=== PATIENT | female | born 1975 | race Caucasian/White ===

== ENCOUNTER 2017-03-17 17:51 | Emergency (ER) | payer SELFPAY ==
[2017-03-17 18:18] VITALS: TEMP 98.9
[2017-03-17] MEDS ORDERED: Albuterol-Ipratrop 3 mg / 0.5 (3 ml) UD INH STA (18:46)
[2017-03-17] MEDS ORDERED: Albuterol-Ipratrop 3 mg / 0.5 (3 ml) UD ONE (19:09)
--- NOTE | 2017-03-17 19:11 | C.PDOC ---
History Of Present Illness 41 y/o female presents to ED with complaints of cough for 3 days. Patient states she was using inhaler at home with no relief and ran out of her nebulizer medication. notes she has not had asthma exacerbation in "many months " and notes it feels the same way, no new symptoms. Patient denies fever, chest pain, n/v/d or any other complaints at this time. Time Seen by Provider: 03/17/17 18:34 Chief Complaint (Nursing): Cough, Cold, Congestion History Per: Patient History/Exam Limitations: no limitations Onset/Duration Of Symptoms: Days Current Symptoms Are (Timing): Still Present Past Medical History Reviewed: Historical Data, Nursing Documentation, Vital Signs Vital Signs: Last Vital Signs Temp 98.9 F 03/17/17 18:15 Pulse 78 03/17/17 20:22 Resp 16 03/17/17 20:22 BP 125/84 03/17/17 20:22 Pulse Ox 100 03/17/17 20:31 - Medical History PMH: Asthma Family History: States: Unknown Family Hx - Social History Hx Tobacco Use: No Hx Alcohol Use: No Hx Substance Use: No - Immunization History Hx Tetanus Toxoid Vaccination: No Hx Influenza Vaccination: No Hx Pneumococcal Vaccination: No Review Of Systems Except As Marked, All Systems Reviewed And Found Negative. Constitutional: Negative for: Fever, Chills Cardiovascular: Negative for: Chest Pain Respiratory: Positive for: Cough Gastrointestinal: Negative for: Nausea, Vomiting, Diarrhea Skin: Negative for: Rash Physical Exam - Physical Exam Appears: Well, Non-toxic, No Acute Distress Skin: Normal Color, Warm Head: Atraumatic, Normacephalic Eye(s): bilateral: Normal Inspection, EOMI Ear(s): Bilateral: Normal Nose: Normal Oral Mucosa: Moist Throat: Normal, No Erythema Neck: Normal, Normal ROM, Supple Chest: Symmetrical Cardiovascular: Rhythm Regular Respiratory: Decreased Breath Sounds, No Rales, No Rhonchi, No Wheezing Extremity: Normal ROM, Capillary Refill (<2 seconds) Neurological/Psych: Oriented x3, Normal Motor, Normal Sensation ED Course And Treatment O2 Sat by Pulse Oximetry: 100 (RA) Pulse Ox Interpretation: Normal Progress Note: Duo neb and prednisone ordered. On reassessment, patient is resting comfortably with no wheezing, chest pain, or retractions. Pt was offered additional neb, pt refused. Pt notes she wells normal. Oxygen saturation and breath sounds have improved. Patient is alert and oriented x 3. Patient was advised to follow up with physician/clinic in 1-2 days and return to ED if symptoms worsen or persist. Reevaluation Time: 19:45 (On reassessment, patient is resting comfortably with no wheezing, chest pain, or retractions. Oxygen saturation and breath sounds have improved. Patient is alert and oriented x 3. Patient was advised to follow up with physician/clinic in 1-2 days and return to ED if symptoms worsen or persist. ) Reassessment Condition: Improved Disposition - Disposition Disposition: HOME/ ROUTINE Disposition Time: 19:57 Condition: STABLE Additional Instructions: Vaya a capellan mdico o la clnica en 1-3 no sin falta, para mas evaluacin. [place] and[place] medicamentos ligia indicado. Volver a la josh de emergencia en cualquier momento si los sntomas persisten o empeoran. Prescriptions: Albuterol 0.083% [Albuterol 0.083% Inhal Michela (2.5 mg/3 ml) UD] 2.5 mg IH Q6 PRN #20 neb PRN Reason: Shortness Of Breath predniSONE [Prednisone] 40 mg PO DAILY #8 tab Instructions: Asthma (ED) Print Language: TAJIK - Clinical Impression Clinical Impression: Asthma exacerbation - Scribe Statement The provider has reviewed the documentation as recorded by the Scribpepe Trimble All medical record entries made by the Scribe were at my direction and personally dictated by me. I have reviewed the chart and agree that the record accurately reflects my personal performance of the history, physical exam, medical decision making, and the department course for this patient. I have also personally directed, reviewed, and agree with the discharge instructions and disposition.
[2017-03-17 20:26] VITALS: BP 125/84; PULSE 78; RESP 16
[2017-03-17 20:32] VITALS: O2SAT 100
== END 2017-03-17 20:22 | disposition home or self-care (01) ==
LOC: C.ER 17:51
DX: J45.901 Unspecified asthma with (acute) exacerbation (principal)

== ENCOUNTER 2017-06-16 11:19 | Emergency (ER) | payer OTHER ==
[2017-06-16 11:45] VITALS: BMI 25.7
[2017-06-16 11:49] VITALS: O2SAT 95
[2017-06-16] MEDS ORDERED: Dexamethasone 4 mg/1 ml IM STA (12:43)
[2017-06-16] MEDS ORDERED: Dexamethasone 4 mg/1 ml ONE (13:00)
--- NOTE | 2017-06-16 13:00 | C.PDOC ---
History Of Present Illness 42 year old female presents to the ED for evaluation of right-sided lower back pain which began yesterday. Patient states her pain is non-radiating and worse with movement of her back. Patient has been taking [id number]-nzomcew pain medicine without significant relief. Patient denies fever, chills, abdominal pain, urinary/bowel incontinence, extremity numbness/weakness, and recent trauma /falls. Time Seen by Provider: 06/16/17 11:50 Chief Complaint (Nursing): Back Pain History Per: Patient History/Exam Limitations: no limitations Onset/Duration Of Symptoms: Other (2 weeks ) Current Symptoms Are (Timing): Still Present Quality Of Discomfort: "Pain" Previous Symptoms: Back Pain Associated Symptoms: denies: Incontinence, New Weakness, New Numbness Exacerbating Factor(s): Movement Additional History Per: Patient Past Medical History Reviewed: Historical Data, Nursing Documentation, Vital Signs Vital Signs: Last Vital Signs Temp 98.1 F 06/16/17 11:45 Pulse 63 06/16/17 11:45 Resp 18 06/16/17 11:45 BP 118/76 06/16/17 11:45 Pulse Ox 95 06/16/17 14:28 - Medical History PMH: Asthma Surgical History: No Surg Hx Family History: States: Unknown Family Hx - Social History Hx Tobacco Use: No Hx Alcohol Use: No Hx Substance Use: No - Immunization History Hx Tetanus Toxoid Vaccination: No Hx Influenza Vaccination: No Hx Pneumococcal Vaccination: No Review Of Systems Constitutional: Negative for: Fever, Chills Gastrointestinal: Negative for: Abdominal Pain Genitourinary: Negative for: Incontinence Musculoskeletal: Positive for: Back Pain (right-sided, lower ) Neurological: Negative for: Weakness, Numbness Physical Exam - Physical Exam Appears: Non-toxic, No Acute Distress Skin: Normal Color, Warm, Dry Head: Atraumatic, Normacephalic Eye(s): bilateral: Normal Inspection Oral Mucosa: Moist Neck: Supple Chest: Symmetrical, No Deformity, No Tenderness Cardiovascular: Rhythm Regular, No Murmur Respiratory: Normal Breath Sounds, No Rales, No Rhonchi, No Wheezing Gastrointestinal/Abdominal: Soft, No Tenderness, No Guarding, No Rebound Back: Paraspinal Tenderness (right-sided, lower ) Extremity: Normal ROM, Capillary Refill (less than 2 seconds ) Neurological/Psych: Oriented x3, Normal Speech, Normal Cognition Gait: Steady ED Course And Treatment - Laboratory Results Urine POC: Negative O2 Sat by Pulse Oximetry: 95 (on RA) Pulse Ox Interpretation: Normal - Other Rad lumbar spine XR X-Ray: Interpreted by Me, Viewed By Me, Read By Radiologist Interpretation: Lumbar spine three views. History: Back pain. Comparison: None available. Findings: Minimal retrolisthesis of L2 on L3, L3 on L4, and L4 on L5. Mild inferior endplate concavities at the L4 and L5 vertebral bodies. Facet sclerosis and hypertrophy at the L4-5 and L5-S1 levels. Disc space narrowing with endplate sclerosis within the lower thoracic spine. Rounded radiopaque densities project over the right renal fossa, nonspecific. Impression: Minimal retrolisthesis of L2 on L3, L3 on L4, and L4 on L5. Mild inferior endplate concavities at the L4 and L5 vertebral bodies. Facet sclerosis and hypertrophy at the L4-5 and L5-S1 levels. Disc space narrowing with endplate sclerosis within the lower thoracic spine. Correlation with spinal MRI may be helpful if clinically indicated. Rounded radiopaque densities project over the right renal fossa, nonspecific. Correlation with renal ultrasound may be helpful if clinically indicated. Medical Decision Making Medical Decision Making: Progress: LS Spine AP/LAT and UA ordered and reviewed. Ciproflaxin PO, Decadron IM,and Toradol IM administered. On second re-exam, the patient reports improvement of symptoms. Lungs are CTA, heart is RRR, Ambulatory in the ED with steady gait. Abdomen is soft, non- tender and tolerating PO well. Ambulatory in the ED with gait. Follow up with the medical doctor within 1-2 days. Return if worsened. Disposition - Disposition Referrals: [facility] [Outside] Disposition: HOME/ ROUTINE Disposition Time: 14:49 Condition: GOOD Additional Instructions: Follow up with the medical doctor within 1-2 days. Return if worsened. Prescriptions: Ciprofloxacin [Cipro] 1 tab PO BID #14 tab Cyclobenzaprine [Cyclobenzaprine HCl] 10 mg PO BID #14 tab Naproxen [Naprosyn] 500 mg PO BID #20 tab Instructions: Acute Low Back Pain (DC), Urinary Tract Infection in Women (ED) Forms: [employer] (Albanian) Print Language: SERBIAN - Clinical Impression Clinical Impression: Low back pain, UTI (urinary tract infection) - PA / ELECTRICAL PROSPECTING OBSERVER / Resident Statement MD/DO has reviewed & agrees with the documentation as recorded. - Scribe Statement The provider has reviewed the documentation as recorded by the Scribe (Ximena Ramirez) All medical record entries made by the Scribe were at my direction and personally dictated by me. I have reviewed the chart and agree that the record accurately reflects my personal performance of the history, physical exam, medical decision making, and the department course for this patient. I have also personally directed, reviewed, and agree with the discharge instructions and disposition.
--- NOTE | 2017-06-16 13:44 | RAD ---
Lumbar spine three views History: Back pain. Comparison: None available. Findings: Minimal retrolisthesis of L2 on L3, L3 on L4, and L4 on L5. Mild inferior endplate concavities at the L4 and L5 vertebral bodies. Facet sclerosis and hypertrophy at the L4-5 and L5-S1 levels. Disc space narrowing with endplate sclerosis within the lower thoracic spine. Rounded radiopaque densities project over the right renal fossa, nonspecific. Impression: Minimal retrolisthesis of L2 on L3, L3 on L4, and L4 on L5. Mild inferior endplate concavities at the L4 and L5 vertebral bodies. Facet sclerosis and hypertrophy at the L4-5 and L5-S1 levels. Disc space narrowing with endplate sclerosis within the lower thoracic spine. Correlation with spinal MRI may be helpful if clinically indicated. Rounded radiopaque densities project over the right renal fossa, nonspecific. Correlation with renal ultrasound may be helpful if clinically indicated.
[2017-06-16 14:00] LABS: RBC URINE 7 /hpf (0-3); URINE BACTERIA RARE (<OCC); URINE BILIRUBIN NEGATIVE (NEGATIVE); URINE BLOOD 1+ (NEGATIVE); URINE COLOR Yellow (YELLOW); URINE GLUCOSE (UA) NORMAL (Normal); URINE KETONE NEGATIVE (NEGATIVE); URINE LEUKOCYTE ESTERASE 3+ Leu/uL (Negative); URINE PROTEIN NEGATIVE (NEGATIVE); URINE UROBILINOGEN NORMAL mg/dL (0.2-1.0); WBC URINE 37 /hpf (0-5)
[2017-06-16 14:59] VITALS: BP 130/82; PULSE 62; RESP 16; TEMP 98
== END 2017-06-16 14:59 | disposition home or self-care (01) ==
LOC: C.ER 11:19
DX: N39.0 Urinary tract infection, site not specified (principal); M54.5 Low back pain
CPT/HCPCS: 72100; 81001; 87086; 96372; 99284; J1100; J1885

== ENCOUNTER 2017-10-10 13:29 | Emergency (ER) | payer OTHER, SELFPAY ==
[2017-10-10 14:05] VITALS: BMI 26.1
[2017-10-10 14:07] VITALS: RESP 20
--- NOTE | 2017-10-10 15:11 | C.PDOC ---
History Of Present Illness 42 year old female with no PMHx presents to the ER with a complaint of bilateral lower leg swelling for the past 2 weeks. Patient states the swelling has been worsening and today she had pain with ambulation which prompted ER visit. Patient notes she scheduled an appointment with her PMD but the earliest appointment she could get was October 28. Denies chest pain, SOB, or fever. Time Seen by Provider: 10/10/17 14:22 Chief Complaint (Nursing): Lower Extremity Problem/Injury History Per: Patient History/Exam Limitations: no limitations Onset/Duration Of Symptoms: Days Current Symptoms Are (Timing): Still Present Recent travel outside of the [place] States: No Past Medical History Reviewed: Historical Data, Nursing Documentation, Vital Signs Vital Signs: Last Vital Signs Temp 98.7 F 10/10/17 14:05 Pulse 70 10/10/17 14:05 Resp 20 10/10/17 14:05 BP 154/78 H 10/10/17 14:05 Pulse Ox 98 10/10/17 17:16 - Medical History PMH: Asthma Family History: States: Unknown Family Hx - Social History Hx Tobacco Use: No Hx Alcohol Use: No Hx Substance Use: No - Immunization History Hx Tetanus Toxoid Vaccination: No Hx Influenza Vaccination: No Hx Pneumococcal Vaccination: No Review Of Systems Constitutional: Negative for: Fever, Chills Cardiovascular: Negative for: Chest Pain Respiratory: Negative for: Shortness of Breath Musculoskeletal: Positive for: Other (Lower leg swelling and pain) Physical Exam - Physical Exam Appears: Non-toxic, No Acute Distress Skin: Normal Color, Warm, Dry Head: Atraumatic, Normacephalic Eye(s): bilateral: Normal Inspection Oral Mucosa: Moist Chest: Symmetrical, No Tenderness Cardiovascular: Rhythm Regular Respiratory: Normal Breath Sounds, No Rales, No Rhonchi, No Wheezing Extremity: Tenderness (Bilateral posterior legs.), Pedal Edema (+1 pitting to bilateral feet, ankles, and distal shins. Negative homans sign.) Neurological/Psych: Oriented x3, Normal Speech, Normal Motor, Normal Sensation Gait: Steady ED Course And Treatment - Laboratory Results Result Diagrams: 10/10/17 15:55 10/10/17 15:55 O2 Sat by Pulse Oximetry: 98 (Room air) Pulse Ox Interpretation: Normal Medical Decision Making Medical Decision Making: Blood work, CXR, urinalysis, and doppler ordered. 3516 pm doppler neg bilateral, bnp neg. cxr neg for congestion, infiltrate. results discussed with patient. pt advised to keep legs elevated whem possible, . avopid prolonged standing. keep clinic appt on Oct 25. Disposition Counseled Patient/Family Regarding: Studies Performed, Diagnosis, Need For Followup - Disposition Disposition: HOME/ ROUTINE Disposition Time: 17:18 Condition: STABLE Additional Instructions: Por favor, mantenga las piernas elevadas cuando sea posible, evite estar parado por mucho tiempo. Sergey un seguimiento con la clnica en capellan octavio en segn lo programado, traiga todos los resultados de la prueba para capellan revisin. Regrese a la josh de urgencias por cualquier sntoma peor, Please keep legs elevated when possible, avoid prolonged standing. Follow up with clinic at your appointment in October as scheduled, bring all test results with you for review. Return to ER for any worse symptoms, Instructions: Dependent Edema (DC) Forms: Gen Discharge Inst Argentine, [facility] (Argentine) - Clinical Impression Clinical Impression: Localized swelling of both lower legs - PA / TAIL BOARD MAN / Resident Statement MD/DO has reviewed & agrees with the documentation as recorded. - Scribe Statement The provider has reviewed the documentation as recorded by the Scribpepe Downey All medical record entries made by the Sallyibpepe were at my direction and personally dictated by me. I have reviewed the chart and agree that the record accurately reflects my personal performance of the history, physical exam, medical decision making, and the department course for this patient. I have also personally directed, reviewed, and agree with the discharge instructions and disposition.
--- NOTE | 2017-10-10 15:49 | RAD ---
HISTORY: bilateral leg swelling COMPARISON: 03/08/2016 TECHNIQUE: Chest PA and lateral FINDINGS: LUNGS: No active pulmonary disease. PLEURA: No significant pleural effusion identified. No pneumothorax apparent. CARDIOVASCULAR: Normal. OSSEOUS STRUCTURES: No significant abnormalities. VISUALIZED UPPER ABDOMEN: Normal. OTHER FINDINGS: None. IMPRESSION: No active disease.
[2017-10-10 16:00] LABS: BASO # 0.1 K/uL (0.0-0.2); BASO % 0.9 % (0.0-2.0); EOS # 0.1 K/uL (0.0-0.7); EOS % 1.7 % (0.0-4.0); HEMOGLOBIN 11.7 g/dL (11.0-16.0); LYMPH # 1.8 K/uL (1.0-4.3); LYMPH % 27.2 % (20.0-40.0); MEAN CORPUSCULAR HEMOGLOBIN 27.9 pg (27.0-31.0); MEAN CORPUSCULAR HGB CONC 33.5 g/dL (33.0-37.0); MEAN PLATELET VOLUME 9.1 fL (7.2-11.7); MONO # 0.5 K/uL (0.0-0.8); MONO % 7.3 % (0.0-10.0); NEUT # 4.1 K/uL (1.8-7.0); NEUT % 62.9 % (50.0-75.0); RBC 4.21 Mil/uL (3.80-5.20); RED CELL DISTRIBUTION WIDTH 16.8 % (11.5-14.5); WHITE BLOOD COUNT 6.6 K/uL (4.8-10.8)
[2017-10-10 16:05] LABS: MEAN CELL VOLUME 83.3 fL (81.0-99.0)
[2017-10-10 16:07] LABS: HCG,QUALITATIVE URINE NEGATIVE (NEGATIVE)
[2017-10-10 16:09] LABS: SQUAMOUS EPITHIAL 1 /hpf (0-5); URINE BILIRUBIN NEGATIVE (NEGATIVE); URINE BLOOD 2+ (NEGATIVE); URINE CLARITY Clear (Clear); URINE COLOR Yellow (YELLOW); URINE GLUCOSE (UA) NORMAL (Normal); URINE LEUKOCYTE ESTERASE 2+ Leu/uL (Negative); URINE NITRATE NEGATIVE (NEGATIVE); URINE PROTEIN NEGATIVE (NEGATIVE); URINE UROBILINOGEN NORMAL mg/dL (0.2-1.0)
[2017-10-10 16:14] LABS: ALB/GLOB RATIO 1.3 (1.0-2.1); ALT/SGPT 26 U/L (9-52); AST/SGOT 18 U/L (14-36); BLOOD UREA NITROGEN 14 mg/dL (7-17); GFR AFRICAN-AMERICAN > 60; GFR NON-AFRICAN AMERICAN > 60
[2017-10-10 16:23] LABS: B-TYPE NATRIURETIC PEPTIDE 43.7 pg/mL (0-450)
[2017-10-10 17:28] VITALS: BP 104/69; PULSE 65; TEMP 99
[2017-10-11 22:15] VITALS: O2SAT 98
--- NOTE | 2017-10-13 13:11 | VASCLAB ---
PROCEDURE: Lower Extremity Venous Duplex Exam. HISTORY: bilateral leg swelling and calf pain PRIORS: None. TECHNIQUE: Bilateral common femoral, femoral, popliteal and posterior tibial, peroneal and great saphenous veins were evaluated. Flow was assessed with color Doppler, compressibility, assessment of phasic flow and augmentation response. Report prepared by JUDIT Tang, RVT FINDINGS: RIGHT: 1. Common Femoral Vein: 1.1. Compressibility - Fully compressible: Thrombus - None : Flow - Phasic: Augmentation -Normal: Reflux - None. 2. Femoral Vein: 2.1. Compressibility - Fully compressible: Thrombus - None : Flow - Phasic: Augmentation -Normal: Reflux - None. 3. Popliteal Vein: 3.1. Compressibility - Fully compressible: Thrombus - None : Flow - Phasic: Augmentation -Normal: Reflux - None. 4. Posterior Tibial Vein: 4.1. Compressibility - Fully compressible: Thrombus - None: Flow - Phasic: Augmentation -Normal: Reflux - None. 5. Peroneal Vein: 5.1. Compressibility - Fully compressible: Thrombus - None: Flow - Phasic: Augmentation -Normal: Reflux - None. 6. Great Saphenous Vein: 6.1. Compressibility - Fully compressible: Thrombus - None: Flow - Phasic: Augmentation - Normal: Reflux - None. LEFT: 1. Common Femoral Vein: 1.1. Compressibility - Fully compressible: Thrombus - None: Flow - Phasic: Augmentation -Normal: Reflux - None. 2. Femoral Vein: 2.1. Compressibility - Fully compressible: Thrombus - None: Flow - Phasic: Augmentation -Normal: Reflux - None. 3. Popliteal Vein: 3.1. Compressibility - Fully compressible: Thrombus - None : Flow - Phasic: Augmentation -Normal: Reflux - None. 4. Posterior Tibial Vein: 4.1. Compressibility - Fully compressible: Thrombus - None: Flow - Phasic: Augmentation -Normal: Reflux - None. 5. Peroneal Vein: 5.1. Compressibility - Fully compressible: Thrombus - None: Flow - Phasic: Augmentation -Normal: Reflux - None. 6. Great Saphenous Vein: 6.1. Compressibility - Fully compressible: Thrombus - None: Flow - Phasic: Augmentation - Normal: Reflux - None. OTHER FINDINGS: Right: None significant. Left: None significant. IMPRESSION: Right: No evidence of deep or superficial vein thrombosis of the right lower extremity. Normal valve function noted of the right side. Left: No evidence of deep or superficial vein thrombosis of the left lower extremity. Normal valve function noted of the left side.
== END 2017-10-10 17:29 | disposition home or self-care (01) ==
LOC: C.ER 13:29
DX: M79.89 Other specified soft tissue disorders (principal)

== ENCOUNTER 2018-02-02 10:01 | Emergency (ER) | payer SELFPAY ==
[2018-02-02 10:01] VITALS: BMI 26.1
[2018-02-02] MEDS ORDERED: Lidocaine 5% Patch TD STA (10:11)
--- NOTE | 2018-02-02 10:11 | C.PDOC ---
History Of Present Illness Patient is a 42 y/o female who presents to the ED by transfer for new onset of right mid/lower back pain for the last 3 days. Patient reports to have experienced symptoms after heavy lifting; pain is localized and worsens with movement. Patient admits using OTC "pain patches" and Tylenol with minimal relief. Patient denies any other physical complaints at this time. VIA TRANS NEW ONSET R MID/LOWER BACK PAIN X 3 DAYS. ONSET AFTER HEAVY LIFTING. LOCALIZED WORSE W MOVEMENT. MIN RELIEF W TYLENOL, OTC "PAIN PATCHES". DENIES OTHER ASSOC SX EXAM MILD DIST NONTOXIC BACK +L MID.LOWER BACK TEND W SPASM. LIMITED FULL EXTENSION DUE TO PAIN. NO SPINAL TEND. SKIN WNL NEURO NO FOCAL DEF GAIT WNL REMAINDE RNEG Time Seen by Provider: 02/02/18 10:09 History Per: Patient History/Exam Limitations: no limitations Onset/Duration Of Symptoms: Days (3) Current Symptoms Are (Timing): Still Present Previous Symptoms: Back Pain (mid/lower) Exacerbating Factor(s): Movement Recent travel outside of the [place]: No Past Medical History Reviewed: Historical Data, Nursing Documentation, Vital Signs Vital Signs: Last Vital Signs Temp 98.8 F 02/02/18 10:10 Pulse 60 02/02/18 10:10 Resp 18 02/02/18 10:10 BP 160/85 H 02/02/18 10:10 Pulse Ox 100 02/02/18 10:10 - Medical History PMH: Asthma Surgical History: No Surg Hx Family History: States: No Known Family Hx - Social History Hx Tobacco Use: No Hx Alcohol Use: No Hx Substance Use: No - Immunization History Hx Tetanus Toxoid Vaccination: No Hx Influenza Vaccination: No Hx Pneumococcal Vaccination: No Review Of Systems Gastrointestinal: Negative for: Abdominal Pain Musculoskeletal: Positive for: Back Pain (mid/lower) Neurological: Negative for: Weakness, Numbness Physical Exam - Physical Exam Appears: Non-toxic, In Acute Distress (mildly) Skin: Normal Color, Warm, Dry, No Rash, No Ecchymosis Oral Mucosa: Moist Back: Vertebral Tenderness (left mid lower back ), Decreased ROM (limited full extension secondary to pain), Muscle Spasm, No Paraspinal Tenderness Neurological/Psych: Oriented x3, Normal Speech, Normal Cognition, Other (no focal deficits) Gait: Steady ED Course And Treatment Progress Note: Flexeril, toradol, and lidoderm administered. On re-eval, patient is resting comfortably and stable for discharge. Discharge instructions discussed with patient and advised to follow up with PMD. Disposition Counseled Patient/Family Regarding: Diagnosis, Need For Followup, Rx Given - Disposition Referrals: [facility] [Outside] [facility] [Outside] [facility] [Other] Disposition: HOME/ ROUTINE Disposition Time: 10:10 Condition: IMPROVED Prescriptions: Cyclobenzaprine [Flexeril] 10 mg PO TID #15 tab Ibuprofen [Motrin] 600 mg PO Q6 #30 tab Lidocaine 5% [Lidoderm] 1 ea TD PRN PRN #10 patch PRN Reason: Pain, Moderate (4-7) Instructions: Low Back Pain (DC) Forms: Work Excuse Print Language: NEPALESE - Clinical Impression Clinical Impression: Back strain - Scribe Statement The provider has reviewed the documentation as recorded by the Scribe Moon Capellan All medical record entries made by the Scribe were at my direction and personally dictated by me. I have reviewed the chart and agree that the record accurately reflects my personal performance of the history, physical exam, medical decision making, and the department course for this patient. I have also personally directed, reviewed, and agree with the discharge instructions and disposition.
[2018-02-02 10:13] VITALS: BP 160/85; PULSE 60; RESP 18; TEMP 98.8; O2SAT 100
[2018-02-02] MEDS ORDERED: Lidocaine 5% Patch TD ONE (10:17)
== END 2018-02-02 10:44 | disposition home or self-care (01) ==
LOC: C.ER 10:01
DX: S39.012A Strain of muscle, fascia and tendon of lower back, initial encounter (principal); X50.0XXA Overexertion from strenuous movement or load, initial encounter; Y92.9 Unspecified place or not applicable
CPT/HCPCS: 96372; 99283; J1885

== ENCOUNTER 2019-01-12 09:25 | Emergency (ER) | payer OTHER ==
[2019-01-12 09:25] VITALS: BMI 26.1
[2019-01-12 09:38] VITALS: TEMP 98.5; O2SAT 97
[2019-01-12] MEDS ORDERED: Dexamethasone 4 mg/1 ml IM STA (10:50)
--- NOTE | 2019-01-12 10:50 | C.PDOC ---
History Of Present Illness 43 year old female presents to the emergency department with complaints of right-sided back pain for the last two weeks. Patient states that her back hurts with movement and bending forward. Patient states that she she took Ibuprofen and used a patch with no relief of pain. Patient denies radiation of pain, weakness, numbness, and incontinence. Time Seen by Provider: 01/12/19 10:20 Chief Complaint (Nursing): Back Pain History Per: Patient History/Exam Limitations: no limitations Onset/Duration Of Symptoms: Other (2 weeks) Current Symptoms Are (Timing): Still Present Quality Of Discomfort: "Pain" Associated Symptoms: None Exacerbating Factor(s): Turning, Movement Past Medical History Reviewed: Historical Data, Nursing Documentation, Vital Signs Vital Signs: Last Vital Signs Temp 98.5 F 01/12/19 09:37 Pulse 65 01/12/19 09:37 Resp 20 01/12/19 09:37 BP 122/78 01/12/19 09:37 Pulse Ox 97 01/12/19 09:37 Primary Care Provider: FAMILY PROVIDER,NO - Medical History PMH: Asthma Surgical History: No Surg Hx Family History: States: No Known Family Hx - Social History Hx Tobacco Use: No Hx Alcohol Use: No Hx Substance Use: No - Immunization History Hx Tetanus Toxoid Vaccination: No Hx Influenza Vaccination: No Hx Pneumococcal Vaccination: No Review Of Systems Except As Marked, All Systems Reviewed And Found Negative. Constitutional: Negative for: Fever, Chills Cardiovascular: Negative for: Chest Pain Respiratory: Negative for: Cough, Shortness of Breath Gastrointestinal: Negative for: Nausea, Vomiting, Diarrhea Genitourinary: Negative for: Dysuria, Frequency, Incontinence Musculoskeletal: Positive for: Back Pain Physical Exam - Physical Exam Appears: Non-toxic, No Acute Distress Skin: Normal Color, Warm, Dry, No Rash Head: Atraumatic, Normacephalic Eye(s): bilateral: Normal Inspection, PERRL, EOMI Oral Mucosa: Moist Throat: No Erythema, No Exudate Neck: Normal, Supple Chest: Symmetrical, No Tenderness Cardiovascular: No Friction Rub, No Murmur Respiratory: Normal Breath Sounds, No Rales, No Rhonchi Gastrointestinal/Abdominal: Soft, No Tenderness, No Guarding, No Rebound Back: No CVA Tenderness, No Vertebral Tenderness, Paraspinal Tenderness (right-sided parathoracic tenderness) Extremity: Normal ROM, No Swelling Neurological/Psych: Oriented x3, Normal Speech, Normal Cognition, Normal Motor, Normal Sensation Gait: Steady ED Course And Treatment O2 Sat by Pulse Oximetry: 97 (RA) Pulse Ox Interpretation: Normal Medical Decision Making Medical Decision Making: Plan: Decadron 10mg IM Toradol 30mg IM Urine Culture POC Urine Urinalysis Results were discussed with the patient. On re-exam, the patient reports improvement of symptoms. Lungs are CTA, heart is RRR, abdomen is soft, non- tender and tolerating PO well. Pt is ambulatory in the ED with steady gait. Follow up with the medical doctor/clinic within 1-2 days, Return if worsened. Disposition - Disposition Referrals: Dre Concepcion MD [Non-Staff] - Disposition: HOME/ ROUTINE Disposition Time: 12:11 Condition: IMPROVED Additional Instructions: Follow up with the medical doctor/clinic within 1-2 days, Return if worsened. 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 - Scribe Statement The provider has reviewed the documentation as recorded by the Scribe (Damaso Quintana) All medical record entries made by the Scribe were at my direction and personally dictated by me. I have reviewed the chart and agree that the record accurately reflects my personal performance of the history, physical exam, medical decision making, and the department course for this patient. I have also personally directed, reviewed, and agree with the discharge instructions and disposition.
[2019-01-12 11:35] LABS: SQUAMOUS EPITHIAL 7 /hpf (0-5); URINE BACTERIA RARE (<OCC); URINE BILIRUBIN NEGATIVE (NEGATIVE); URINE BLOOD 1+ (NEGATIVE); URINE CLARITY Hazy (Clear); URINE COLOR Yellow (YELLOW); URINE GLUCOSE (UA) NORMAL (Normal); URINE LEUKOCYTE ESTERASE 2+ Leu/uL (Negative); URINE PROTEIN NEGATIVE (NEGATIVE); URINE UROBILINOGEN NORMAL mg/dL (0.2-1.0)
[2019-01-12 12:14] VITALS: BP 107/72; PULSE 58; RESP 18
== END 2019-01-12 12:18 | disposition home or self-care (01) ==
LOC: C.ER 09:25
DX: S39.012A Strain of muscle, fascia and tendon of lower back, initial encounter (principal); X58.XXXA Exposure to other specified factors, initial encounter; N39.0 Urinary tract infection, site not specified
CPT/HCPCS: 81001; 81025; 87086; 96372; 99283; J1100; J1885